=== PATIENT | female | born 1950 | race Caucasian/White ===

== ENCOUNTER 2017-03-07 20:40 | Emergency (ER) | payer OTHER ==
[2017-03-07 20:53] VITALS: BMI 34.9
[2017-03-07] MEDS ORDERED: NITROSTAT SL PRN (21:14)
[2017-03-07] MEDS ORDERED: ASPIRIN PO ONE (21:14)
[2017-03-07] MEDS ORDERED: LEVSIN/MAALOX/LIDOC VISC PO ONE (21:14)
[2017-03-07] MEDS ORDERED: LEVSIN/MAALOX/LIDOC VISC ONE (21:17)
[2017-03-07] MEDS ORDERED: ASPIRIN ONE (21:17)
--- NOTE | 2017-03-07 21:22 | DR.GENAD ---
HPI - PCP Primary Care Physician: NFD - Complaint/Symptoms Chief Complaint Doctors Comments: Patient complains of right sided chest pain and xiphoid chest pain for the past 2-3 weeks with her blood pressure being elevated for the past two weeks. States she was taking Toprol 50mg bid and Noravasc but her blood pressure went low and she stopped taking it. States she went to EMT at [place] today with her blood pressure being elevated 158/128 about three hours ago. States she took her blood pressure and it was 180/100 and she took a nerve pill because her toprol was at home. She has been having right sided chest pain for the past 24 hours and it seems to be getting worst. States she has a problem with hiatal hernia and reflux and she was on carafate but it did not help.. She was seeing a doctor that did not give her anything else but the carafate and she told him it did not work and he wanted her to go to a physciatrist. She denies nausea or vomitign, cold or cough.. She denies tobacco use. States she had had problems with her blood pressure and it has been going up for a while. Chief Complaint:: PT STATES" MY BLOOD PRESSURE HAS BEEN ACTING CRAZY THE LAST FEW DAYS. I HURT UNDER MY RT BREAST. I TOOK XANAX 0.25 MG AT 1830" - Nurses notes reviewed Nurses Notes Review: Yes - Source History Provided: Patient - Mode of Arrival Mode of Arrival: Ambulatory - Timing Onset of Chief Complaint: 03/05/17 Came on: Gradually - Duration Duration: Intermittent How lon Duration: Days - Location Location: right sided chest pain and xiphoid pain - Severity Severity: Moderate - Modifying Factors Worsens:: movement Improves:: nothing PMH - PMH Past Medical History: Yes Past Medical History: Anxiety, Diabetes, Dyslipidemia, GERD, Hypertension Past Surgical History: Yes Surgical History: Cholecystectomy, Ortho Surgery Past Surgical History Comment: BILATERAL HIP REPLACEMENT - Family History History of Family Medical Conditions: Yes Family Medical History: [place], Coronary Artery Disease, Heart Failure, Hypertension - Social History Alcohol Use: None Do you use any recreational Drugs:: No Lives With: Family Lives Where: Home - infectious screening In the last 2 months have you had wt loss of >10#?: NO Have you had fever, night sweats or hemotysis?: No Have you traveled outside the country in the last 6 months?: No Isolation: Standard ROS - Review of Systems Constitutional: No Symptoms Reported. negative: See HPI, Chills, Diaphoresis, Fever, Malaise, Weakness, Irritable, Fatigue, Loss of Appetite, Other Eyes: No Symptoms Reported ENTM: No Symptoms Reported Respiratoy: No Symptoms Reported. negative: See HPI, Productive Cough, Non- Productive Cough, Moist Cough, Dry Cough, Hacking Cough, Barking Cough, Brassy Cough, Orthopnea, Short of Breath, Stridor, Wheezing, Hemoptysis, Other Cardiovascular: Chest Pain. negative: No Symptoms Reported, See HPI, Edema, Palpitations, Syncope, Cyanosis, Skin Mottling, Other Gastrointestinal/Abdominal: No Symptoms Reported, Abdominal Pain. negative: See HPI, Constipation, Diarrhea, Nausea, Vomiting, Food Intolerance, Other Genitourinary: No Symptoms Reported. negative: See HPI, Discharge, Dysuria, Frequency, Hematuria, Pain, Bleeding, Other Neurological: No Symptoms Reported, Anxiety, Emotional Problems. negative: See HPI, Depressed, Headache, Numbness, Paresthesia, Pre-existing Deficit, Seizure, Tingling, Tremors, Weakness, Dizziness, Problems Walking, Speech Problem, Other Musculoskeletal: No Symptoms Reported Integumentary: No Symptoms Reported. negative: See HPI, Change in Color, Change in Hair/Nails, Dryness, Lesions, Lumps, Rash, Itching, Wound, Bruises, Juandice, Other Hematologic/Lymphatic: No Symptoms Reported. negative: See HPI, Anemia, Blood Clots, Easy Bleeding, Easy Bruising, Swollen Glands, Lymphadenopathy, Other Endocrine: No Symptoms Reported Psychiatric: No Symptoms Reported PE - Vital Signs Vitals: Temperature 98.3 F Pulse Rate [Left Brachial] 64 Pulse Rate 78 Respiratory Rate 18 Blood Pressure [Left Arm] 164/78 Blood Pressure 194/78 O2 Sat by Pulse Oximetry 100 - General Limitations: No Limitations General Appearance: Alert, In Distress (slight) - Head Head Exam: Normal Inspection, Atraumatic, Normocephalic - Eyes Eye exam: Normal Appearance, PERRL, EOMI. negative: Scleral Icterus, Conjunctival Injection, Nystagmus, Miosis, Mydrasis, Periorbital Swelling, Periorbital Tenderness, Other - ENT ENT Exam: Normal Exam, Normal Oropharynx, Normal External Ear Exam, Mucous Membranes Moist, TM's Normal Bilaterally External Ear Exam: Normal External Inspection TM/Canal Exam: Bilateral Normal Nose Exam: Normal Nose Exam Mouth Exam: Normal Inspection Throat Exam: Normal Inspection - Neck Neck Exam: Normal Inspection, Full ROM, Trachea Midline. negative: Tenderness, Meningismus, Lymphadenopathy, Thyromegaly, Other - Chest Chest Inspection: Normal Inspection, Symmetric Chest Wall Rise - Respiratory Respiratory Exam: Normal Lung Sounds Bilat Respiratory Exam: Bilateral Clear to Auscultation - Cardiovascular Cardiovascular Exam: Regular Rate, Normal Rhythm, Normal Heart Sounds. negative : Bradycardia, Tachycardia, Irregular Rhythm, Systolic Murmur, Diastolic Murmur , Rubs, Gallop, Clicks, JVD, +S1, +S2, +S3, +S4, Other - Abdominal Exam Abdominal Exam: Normal Inspection, Normal Bowel Sounds, Soft, Tenderness ( suprapubic and RUQ tenderness). negative: Distention, Guarding, Rebound, Rigidity, Dimnished Bowel Sounds, Hyperactive Bowel Sounds, Hypoactive Bowel Sounds, Organomegaly, Trauma, Incision, Ascites, Mass, Bruit, Pulsatile Mass, Hernia, Other Abdominal Tenderness: RUQ, RLQ, Suprapubic, Moderate - Extremities Extremities Exam: Normal Inspection, Full ROM, Normal Capillary Refill. negative: Tenderness, Edema, Joint Swelling, Calf Tenderness, Other - Back Back Exam: Normal Inspection, Full ROM. negative: Tenderness, (R) CVA Tenderness, (L) CVA Tenderness, Muscle Spasm, Paraspinal Tenderness, Vertebral Tenderness, Rashes, (R) Sciatic Notch Tenderness, (L) Sciatic Notch Tendern, (R ) Straight Leg Raise, (L) Straight Leg Raise, Other - Neurologic Neurological Exam: Alert, Oriented X3, CN II-XII Intact, Reflexes Normal. negative: Normal Gait (gait not tested) - Psychiatric Psychiatric Exam: Normal Affect, Normal Mood. negative: Depressed, Agitated, Anxious, Flat Affect, Manic, Homicidal Ideation, Suicidal Ideation, Other - Skin Skin Exam: Warm, Dry, Intact, Normal Color. negative: Rash, Cyanosis, Diaphoresis, Erythema, Pallor, Mottled, Other ROR - Labs Reviewed Laboratory Results Reviewed?: Yes (all labs and x-ray results reviewed and discussed with patient.) Result Diagrams: 03/07/17 21:31 03/07/17 21:31 Laboratory: WBC 8.8 X10^3/uL (3.6-10.0) 03/07/17 21:31 RBC 4.81 X10^6/uL (3.5-5.4) 03/07/17 21:31 Hgb 13.5 g/dL (12.0-16.0) 03/07/17 21:31 Hct 40.8 % (36.0-47.0) 03/07/17 21:31 MCV 84.8 fL (80.0-100.0) 03/07/17 21:31 MCH 28.2 pg (27.0-34.0) 03/07/17 21:31 MCHC 33.2 g/dL (33.0-35.0) 03/07/17 21:31 RDW 14.6 % (11.6-16.5) 03/07/17 21:31 Plt Count 203 X10^3/uL (150.0-450.0) 03/07/17 21:31 MPV 8.7 fL (7.4-11.0) 03/07/17 21:31 Neut % 66.5 % (42.0-75.0) 03/07/17 21:31 Lymph % 21.9 % (21.0-51.0) 03/07/17 21:31 [place] % 8.4 % (0.0-13.0) 03/07/17 21:31 Eos % 2.4 % (0.9-2.9) 03/07/17 21:31 Baso % 0.8 % (0.2-1.0) 03/07/17 21:31 Neut # 5.9 x10^3/uL (2.2-4.8) H 03/07/17 21:31 Lymph # 1.9 X10^3/uL (1.3-2.9) 03/07/17 21:31 [place] # 0.7 x10^3/uL (0.3-0.8) 03/07/17 21:31 Eos # 0.2 x10^3/uL (0.0-0.2) 03/07/17 21:31 Baso # 0.1 X10^3/uL (0.0-0.1) 03/07/17 21:31 Absolute Nucleated RBC 0.0 /100WBC 03/07/17 21:31 INR Target Range - 03/07/17 21:31 INR 0.91 (0.8-1.3) 03/07/17 21:31 PTT 23.8 SECONDS (22.9-36.5) 03/07/17 21:31 PTT Comment - 03/07/17 21:31 D-Dimer 1490 ng/mL (0-400) H* 03/07/17 21:31 Sodium 140 mmol/L (136-145) 03/07/17 21:31 Corrected Sodium TNP 03/07/17 21:31 Potassium 4.3 mmol/L (3.5-5.1) 03/07/17 21:31 Chloride 106 mmol/L (98-107) 03/07/17 21:31 Carbon Dioxide 29.3 mmol/L (21-32) 03/07/17 21:31 BUN 17 mg/dL (7-18) 03/07/17 21:31 Creatinine 0.87 mg/dL (0.55-1.02) 03/07/17 21:31 Est GFR (MDRD) Af Amer > 60 (>60) 03/07/17 21:31 Est GFR (MDRD) Non-Af > 60 (>60) 03/07/17 21:31 Glucose 97 mg/dL (65-99) 03/07/17 21:31 Calcium 9.5 mg/dL (8.5-10.1) 03/07/17 21:31 Corrected Calcium 10.1 mg/dL (8.5-10.1) 03/07/17 21:31 Magnesium 1.8 mg/dL (1.7-2.9) 03/07/17 21:31 Total Bilirubin 0.20 mg/dL (0.2-1.0) 03/07/17 21:31 AST 19 Units/L (15-37) 03/07/17 21:31 ALT 24 Units/L (12-78) 03/07/17 21:31 Alkaline Phosphatase 83 Units/L (46-116) 03/07/17 21:31 Creatine Kinase 80 Units/L (26-192) 03/07/17 21:31 CK-MB (CK-2) 3.7 ng/mL (0-4.0) 03/07/17 21:31 CK/CKMB % Calc 4.6 % (<4) 03/07/17 21:31 Troponin I < 0.02 ng/mL (0-1.5) 03/07/17 21:31 Total Protein 7.5 g/dL (6.4-8.2) 03/07/17 21:31 Albumin 3.3 g/dL (3.4-5.0) L 03/07/17 21:31 Globulin 4.2 g/dL (2.5-4.5) 03/07/17 21:31 Albumin/Globulin Ratio 0.8 Ratio (1.1-2.1) L 03/07/17 21:31 Specimen Type Clean catch urine 03/07/17 22:12 Urine Color Yellow (YELLOW) 03/07/17 22:12 Urine Appearance Clear (CLEAR) 03/07/17 22:12 Urine pH 6.0 (5.0 - 8.0) 03/07/17 22:12 Ur Specific [place] 1.015 (1.000-1.030) 03/07/17 22:12 Urine Protein Negative (NEGATIVE) 03/07/17 22:12 Urine Glucose (UA) Negative (NEGATIVE) 03/07/17 22:12 Urine Ketones Negative (NEGATIVE) 03/07/17 22:12 Urine Occult Blood Negative (NEGATIVE) 03/07/17 22:12 Urine Nitrite Negative (NEGATIVE) 03/07/17 22:12 Urine Bilirubin Negative (NEGATIVE) 03/07/17 22:12 Urine Urobilinogen Normal (NORMAL) 03/07/17 22:12 Ur Leukocyte Esterase 2+ (NEGATIVE) 03/07/17 22:12 Urine RBC 0-3 /HPF (NEGATIVE) 03/07/17 22:12 Urine WBC 2-6 /HPF (NEGATIVE) 03/07/17 22:12 Ur Squamous Epith Cells Moderate /HPF (NEGATIVE) 03/07/17 22:12 Urine Bacteria Trace /HPF (NEGATIVE) 03/07/17 22:12 Ur Culture Indicated? No/not indicated 03/07/17 22:12 H. pylori IgG Antibody Positive (NEGATIVE) A 03/07/17 21:31 - XRAY XRAY Interpreted by: Radiologist (CTA: atherosclerotic changes in aorta. Remainder examination unremarkable) - Diagnosis Discharge Problem: Helicobacter positive gastritis, Chest pain in adult, Essential hypertension - Discharge Plan Disposition: 01 HOME, SELF-CARE Condition: Stable Prescriptions: Lansoprazole/Amoxiciln/Clarith [PrevPac 14-day pack] 1 dose PO BID #1 pkg Losartan/Hydrochlorothiazide [Losartan Potassium/Hydroc 50-12.5 mg] 1 tab PO QAM #30 tab - Follow ups/Referrals Follow ups/Referrals: BLANCA JASSO [Primary Care Provider] - 3 days - Instructions Instructions: Hypertension, [id number], Duodenitis, Helicobacter Pylori Antibodies Test
[2017-03-07 21:42] LABS: BASOPHILS # (AUTO) 0.1 X10^3/uL (0.0-0.1); BASOPHILS % (AUTO) 0.8 % (0.2-1.0); EOSINOPHILS # (AUTO) 0.2 x10^3/uL (0.0-0.2); EOSINOPHILS % (AUTO) 2.4 % (0.9-2.9); HEMATOCRIT 40.8 % (36.0-47.0); HEMOGLOBIN 13.5 g/dL (12.0-16.0); LYMPHOCYTES # (AUTO) 1.9 X10^3/uL (1.3-2.9); LYMPHOCYTES % (AUTO) 21.9 % (21.0-51.0); MEAN CORPUSCULAR HEMOGLOBIN 28.2 pg (27.0-34.0); MEAN CORPUSCULAR HGB CONC 33.2 g/dL (33.0-35.0); MEAN CORPUSCULAR VOLUME 84.8 fL (80.0-100.0); MEAN PLATELET VOLUME 8.7 fL (7.4-11.0); MONOCYTES # (AUTO) 0.7 x10^3/uL (0.3-0.8); MONOCYTES % (AUTO) 8.4 % (0.0-13.0); NEUTROPHILS # (AUTO) 5.9 x10^3/uL (2.2-4.8); NEUTROPHILS % (AUTO) 66.5 % (42.0-75.0); PLATELET COUNT 203 X10^3/uL (150.0-450.0); RED BLOOD COUNT 4.81 X10^6/uL (3.5-5.4); RED CELL DISTRIBUTION WIDTH 14.6 % (11.6-16.5); WHITE BLOOD COUNT 8.8 X10^3/uL (3.6-10.0)
--- NOTE | 2017-03-07 21:44 | RAD ---
Portable chest Indication: Chest pain. Comparison: None available. Impression: Heart size is normal given technique. The lungs are hyperexpanded with chronic interstitial prominenc e suggestive of mild COPD. There is no edema, effusion, pneumothorax, or focal consolidation to sugge st pneumonia. There are mild degenerative changes of the shoulders. No acute skeletal abnormality is seen. Reported By:
[2017-03-07 21:58] LABS: BLOOD UREA NITROGEN 17 mg/dL (7-18); CALCIUM 9.5 mg/dL (8.5-10.1); CARBON DIOXIDE 29.3 mmol/L (21-32); CHLORIDE 106 mmol/L (98-107); CREATININE 0.87 mg/dL (0.55-1.02); SODIUM 140 mmol/L (136-145); TROPONIN I < 0.02 ng/mL (0-1.5); eGFR BLACK RACES > 60 (>60); eGFR NON BLACK RACES > 60 (>60)
[2017-03-07 22:00] LABS: ALANINE AMINOTRANSFERASE 24 Units/L (12-78); ALBUMIN 3.3 g/dL (3.4-5.0); ALKALINE PHOSPHATASE 83 Units/L (46-116); ASPARTATE AMINO TRANSFERASE 19 Units/L (15-37); CKMB % 4.6 % (<4); COR CA(FOR HYPOALB) 10.1 mg/dL (8.5-10.1); CREATINE KINASE 80 Units/L (26-192); CREATINE KINASE MB 3.7 ng/mL (0-4.0); MAGNESIUM 1.8 mg/dL (1.7-2.9); TOTAL PROTEIN 7.5 g/dL (6.4-8.2)
[2017-03-07 22:07] LABS: D DIMER 1490 ng/mL (0-400)
[2017-03-07] MEDS ORDERED: NS 100 ML IV 100 ML IV ONE (22:25)
[2017-03-07 22:32] LABS: BILIRUBIN,URINE NEGATIVE (NEGATIVE); BLOOD/HEMOGLOBIN,URINE NEGATIVE (NEGATIVE); GLUCOSE, URINE NEGATIVE (NEGATIVE); KETONES,URINE NEGATIVE (NEGATIVE); LEUKOCYTE ESTERASE ,URINE 2+ (NEGATIVE); NITRITES,URINE NEGATIVE (NEGATIVE); PROTEIN,URINE NEGATIVE (NEGATIVE); UROBILINOGEN,URINE NORMAL (NORMAL)
[2017-03-07 22:46] LABS: APPEARANCE,URINE CLEAR (CLEAR); BACTERIA,URINE TRACE /HPF (NEGATIVE); COLOR,URINE YELLOW (YELLOW); RBC,URINE 0-3 /HPF (NEGATIVE); SQUAMOUS EPITHELIAL CELL,UR MODERATE /HPF (NEGATIVE)
--- NOTE | 2017-03-07 23:27 | CT ---
EXAM: CTA CHEST WITH CONTRAST INDICATION: Right-sided chest pain COMPARISION: No priors for comparison TECHNIQUE: Spiral CT of the chest was performed with contrast. Thin reconstructions in the axial and para-mcnulty l planes were obtained as well as 3D reconstructions. The patient received intravenous contrast with out adverse reaction. FINDINGS: The heart size is normal. There is no evidence of a pulmonary embolism. The aorta is normal in calibe r. No evidence of dissection or aneurysm. Atherosclerotic calcifications are seen in the aorta. No me diastinal or hilar mass or adenopathy. The lungs are clear. No evidence of bullous disease or pulmonary fibrosis. No lung mass, consolidatio n, or suspicious pulmonary nodule. No pleural effusion or pneumothorax identified. The regional skele ton is intact. IMPRESSION: Atherosclerotic changes are seen in the aorta. The remainder the examination appears unremarkable. Reported By:
[2017-03-08 00:20] VITALS: BP 139/66
== END 2017-03-08 00:11 | disposition home or self-care (01) ==
LOC: ER 20:59
DX: R07.89 Other chest pain (principal); B96.81 Helicobacter pylori [H. pylori] as the cause of diseases classified elsewhere; I10 Essential (primary) hypertension
CPT/HCPCS: 36415; 71010; 71275; 80053; 81001; 82550; 82553; 83735; 84484; 85025; 85378; 85610; 85730; 86677; 93005; 93010; 96365; 99283; A4222

== ENCOUNTER 2017-03-19 18:33 | Emergency (ER) | payer OTHER ==
[2017-03-19 18:42] VITALS: BP 150/83; BMI 33.2
--- NOTE | 2017-03-19 20:24 | DR.GENAD ---
HPI - Complaint/Symptoms Chief Complaint Doctors Comments: Patient presents with compllaint of BP is not stable her medication was change two weeks ago and didi not seen her pcp. Chief Complaint:: PT STATES THAT SHE CHANGED BP MEDS 2 WEEKS AGO AND NOW HER BP IS "ZIG ZAGGING" Self Treatment fo Chief Complaint: HAS BEEN NOT TAKING ANXIETY MEDS DUE TO PRESSURE BEING TOO LOW - Source History Provided: Patient - Mode of Arrival Mode of Arrival: Ambulatory - Timing Onset of Chief Complaint: 03/15/17 PMH - PMH Past Medical History: Yes Past Medical History: Anxiety, Diabetes, GERD, Hypertension Past Surgical History: Yes Surgical History: Cholecystectomy, Joint Replacement, Ortho Surgery - Family History History of Family Medical Conditions: Yes Family Medical History: Diabetes Mellitus, [place], Hypertension - Social History Do you use any recreational Drugs:: No - infectious screening Have you traveled outside the country in the last 6 months?: No ROS - Review of Systems Eyes: No Symptoms Reported ENTM: No Symptoms Reported Respiratoy: No Symptoms Reported Cardiovascular: No Symptoms Reported Gastrointestinal/Abdominal: No Symptoms Reported Genitourinary: No Symptoms Reported Neurological: No Symptoms Reported Musculoskeletal: No Symptoms Reported Integumentary: No Symptoms Reported Hematologic/Lymphatic: No Symptoms Reported Endocrine: No Symptoms Reported Psychiatric: No Symptoms Reported All Other Systems: Reviewed and Negative PE - Vital Signs Vitals: Temperature 97.8 F Pulse Rate 74 Respiratory Rate 18 Blood Pressure [Left Arm] 139/66 Blood Pressure 150/83 O2 Sat by Pulse Oximetry 99 - General Limitations: No Limitations General Appearance: Alert, In No Apparent Distress, Appears Intoxicated - Head Head Exam: Normal Inspection - ENT ENT Exam: Normal Exam, Normal Oropharynx External Ear Exam: Normal External Inspection TM/Canal Exam: Bilateral Normal Nose Exam: Normal Nose Exam Mouth Exam: Normal Inspection Throat Exam: Normal Inspection - Neck Neck Exam: Normal Inspection - Chest Chest Inspection: Tenderness (generalized tenderness upper chest chest) - Respiratory Respiratory Exam: Normal Lung Sounds Bilat Respiratory Exam: Bilateral Clear to Auscultation - Cardiovascular Cardiovascular Exam: Regular Rate, Normal Rhythm - Abdominal Exam Abdominal Exam: Normal Inspection, Normal Bowel Sounds Abdominal Tenderness: negative: RUQ, RLQ, LUQ, LLQ, Epigastrium, Suprapubic, Diffuse, Mild, Moderate, Severe, Other - Extremities Extremities Exam: Normal Inspection - Back Back Exam: Normal Inspection - Neurologic Neurological Exam: Alert, Oriented X3, CN II-XII Intact - Psychiatric Psychiatric Exam: Normal Affect, Normal Mood - Skin Skin Exam: Warm, Dry Course - Treatment Treatment: Reviewed blood pressure reading, range 136 to 145 systolic - Diagnosis Discharge Problem: Costochondritis - Discharge Plan Condition: Stable - Follow ups/Referrals Follow ups/Referrals: RAIN NORIEGA [Primary Care Provider] - 3 days - Instructions
== END 2017-03-19 21:07 | disposition home or self-care (01) ==
LOC: ER 18:56
DX: M94.0 Chondrocostal junction syndrome [Tietze] (principal)
CPT/HCPCS: 99281